=== PATIENT | male | born 1995 | race Caucasian/White ===

== ENCOUNTER 2020-02-10 02:34 | Emergency (ER) | payer OTHER | END 2020-02-10 03:25 | disposition other institution (70) | LOC: ED 02:34 | DX: Z02.89 Encounter for other administrative examinations (principal) ==

== ENCOUNTER 2020-02-10 02:34 | Emergency (ER) | payer OTHER ==
[~2020-02-10] VITALS: Ht 167.6 cm; Wt 129.3 kg
[2020-02-10 02:38] VITALS: Ht 167.6 cm; Wt 129.3 kg
[2020-02-10 03:25] VITALS: BP 131/93
== END 2020-02-10 03:25 | disposition other institution (70) ==
LOC: ED 02:34
DX: M79.671 Pain in right foot (principal); M79.672 Pain in left foot; M10.9 Gout, unspecified; M19.90 Unspecified osteoarthritis, unspecified site; V49.49XA Driver injured in collision with other motor vehicles in traffic accident, initial encounter; Y93.89 Activity, other specified; Y92.89 Other specified places as the place of occurrence of the external cause; Y99.8 Other external cause status